=== PATIENT | male | born 1995 | race African-American/Black ===

== ENCOUNTER 2020-02-16 19:16 | Emergency (ER) | payer OTHER ==
[~2020-02-16] VITALS: Ht 172.7 cm; Wt 59.1 kg
[2020-02-16 19:26] VITALS: BP 129/86; TEMP 99.1
[2020-02-16 19:59] LABS: COLLECTION METHOD CLEAN CATCH
[2020-02-16 20:10] LABS: AMORPHOUS CRYSTAL Present /uL; MUCOUS Present /lpf; PH 6 (5-8); SQUAMOUS EPITHELIAL None Seen /hpf; URINE APPEARANCE Cloudy; URINE BACTERIA None Seen /hpf; URINE BILIRUBIN Negative (NEGATIVE); URINE BLOOD Negative (NEGATIVE); URINE COLOR Yellow; URINE GLUCOSE Negative (NEGATIVE); URINE KETONE Negative (NEGATIVE); URINE LEUKOCYTE ESTERASE Negative (NEGATIVE); URINE NITRATE Negative (NEGATIVE); URINE PROTEIN(semi-quant) Negative (NEGATIVE)
[2020-02-16 20:50] VITALS: PULSE 64
== END 2020-02-16 20:49 | disposition home or self-care (01) ==
LOC: COL.ER 19:16
PROVIDERS: Emergency Medicine
DX: Z11.3 Encounter for screening for infections with a predominantly sexual mode of transmission (principal); N48.89 Other specified disorders of penis
CPT/HCPCS: J0696

== ENCOUNTER 2022-01-18 15:57 | Emergency (ER) | payer OTHER ==
[~2022-01-18] VITALS: Ht 172.7 cm; Wt 59.1 kg
[2022-01-18 16:08] VITALS: BP 137/74; TEMP 98
[2022-01-18 16:40] LABS: COLLECTION METHOD CLEAN CATCH
[2022-01-18 16:50] VITALS: PULSE 54
[2022-01-18 16:59] LABS: MUCOUS Present (NOT PRESENT); PH 7 (5-8); SQUAMOUS EPITHELIAL None Seen /hpf (0-10); URINE APPEARANCE Clear (CLEAR/HAZY); URINE BACTERIA None Seen /hpf (NONE SEEN); URINE BILIRUBIN Negative (NEGATIVE); URINE BLOOD Negative (NEGATIVE); URINE COLOR Yellow (YELLOW); URINE GLUCOSE Negative (NEGATIVE); URINE KETONE Negative (NEGATIVE); URINE LEUKOCYTE ESTERASE Negative (NEGATIVE); URINE NITRATE Negative (NEGATIVE); URINE PROTEIN(semi-quant) Negative (NEGATIVE); URINE RBC 0-2 /hpf (0-2); URINE UROBILINOGEN Negative (NEGATIVE)
== END 2022-01-18 16:50 | disposition home or self-care (01) ==
LOC: COL.ER 15:57
PROVIDERS: Physician Assistant
DX: A64 Unspecified sexually transmitted disease (principal); Z28.311 Partially vaccinated for COVID-19

== ENCOUNTER 2022-04-28 14:07 | Emergency (ER) | payer OTHER ==
[~2022-04-28] VITALS: Ht 172.7 cm; Wt 57.7 kg
[2022-04-28 14:13] VITALS: TEMP 98.3
[2022-04-28 14:52] VITALS: BP 116/79; PULSE 59
== END 2022-04-28 14:59 | disposition home or self-care (01) ==
LOC: COL.ER 14:07
DX: N45.1 Epididymitis (principal); Z11.3 Encounter for screening for infections with a predominantly sexual mode of transmission; Z28.311 Partially vaccinated for COVID-19
CPT/HCPCS: J0696